=== PATIENT | male | born 1995 | race Caucasian/White ===

== ENCOUNTER → 2021-03-22 | Emergency (ER) | payer OTHER ==
[~2021-03-22] VITALS: Ht 188 cm; Wt 104.3 kg
[~2021-03-22] MED LIST: CIPRO500 MG PO
== END | disposition home or self-care (01) ==
LOC: ER 13:45
DX: S01.02XA Laceration with foreign body of scalp, initial encounter (principal); W20.8XXA Other cause of strike by thrown, projected or falling object, initial encounter; Y93.89 Activity, other specified; Y92.89 Other specified places as the place of occurrence of the external cause; Y99.8 Other external cause status